=== PATIENT | male | born 1995 | race African-American/Black ===

== ENCOUNTER → 2016-12-05 | Outpatient (CLI) | payer BC ==
--- NOTE | 2016-12-05 11:58 | EKG ---
[facility] [address] [place] [address] Test Date: 2016-12-05 Test Time: 11:56:30 Pat Name: OSCAR JOSEPH Department: Room: Gender: M [employer]ware [employer]: NEIL : 1995 Requested By: STEPH CHAU Order Number: [id number] Reading MD: Measurements Intervals Garber Rate: 52 P: 45 WI: 154 QRS: 34 QRSD: 80 T: 23 QT: 410 QTc: 383 Interpretive Statements SINUS RHYTHM INCOMPLETE RIGHT BUNDLE BRANCH BLOCK OTHERWISE NORMAL ECG RI6.01 No previous ECG available for comparison
== END | disposition home or self-care (01) ==
LOC: EKG 11:41
PROVIDERS: ATTEND Pediatrics
DX: R55 Syncope and collapse (principal)
CPT/HCPCS: 93005